=== PATIENT | female | born 1990 | race Caucasian/White ===

== ENCOUNTER 2018-11-17 11:32 | Emergency (ER) | payer OTHER ==
[~2018-11-17] VITALS: Ht 167.6 cm; Wt 86.2 kg
== END 2018-11-17 11:55 | disposition home or self-care (01) ==
LOC: ED 11:32
DX: M54.2 Cervicalgia (principal)

== ENCOUNTER 2020-09-12 07:35 | Emergency (ER) | payer OTHER ==
[~2020-09-12] VITALS: Ht 167.6 cm; Wt 91.6 kg
[2020-09-12] MEDS ORDERED: ADVIL200 MG PO (08:10)
[2020-09-12] MEDS ORDERED: OMEPRAZOLE20 MG PO (10:04)
[2020-09-12] MEDS ORDERED: ONDANSETRON ODT8 MG PO (10:04)
== END 2020-09-12 10:15 | disposition home or self-care (01) ==
LOC: ED 07:35
DX: K29.70 Gastritis, unspecified, without bleeding (principal); Z88.2 Allergy status to sulfonamides
CPT/HCPCS: 80053; 81001; 83690; 84703; 85025; 87088; 99284

== ENCOUNTER 2024-08-09 17:51 | Emergency (ER) | payer OTHER ==
[~2024-08-09] VITALS: Ht 167.6 cm; Wt 105.9 kg
[~2024-08-09 17:51] MED LIST: ADVIL200 MG PO; OMEPRAZOLE20 MG PO; ONDANSETRON ODT8 MG PO
[2024-08-09] MEDS ORDERED: DOCUSATE SODIU100 MG PO (18:17)
[2024-08-09] MEDS ORDERED: PROCARDIA XL30 MG PO (18:18)
[2024-08-09] MEDS ORDERED: IBUPROFEN600 MG PO (18:18)
[2024-08-09] MEDS ORDERED: NIFEdipine XL 30 MG HOME.PACK PO ONE (18:45)
[2024-08-09 19:00] LABS: BASOPHILS 0.3 % (0-2); EOSINOPHILS 1.3 % (0-6); HEMATOCRIT 35.9 % (35.0-50.0); HEMOGLOBIN 12.4 g/dL (12.0-18.0); LYMPHOCYTES 32.6 % (24-44); MCH 31.4 (27-36); MCHC 34.5 g/dl (30-36); MCV 90.9 fl (81-99); MONOCYTES 6.2 % (0-12); NEUTROPHILS 59.6 % (39-80); PLATELET COUNT 360 K/uL (140-440); RBC 3.94 M/ul (4.3-5.7)
[2024-08-09 19:15] LABS: ALBUMIN 2.5 g/dL (3.4-5.0); ALBUMIN/GLOBULIN RATIO 0.58 (1.1-2.4); ANION GAP 12.1 (7-21); BILIRUBIN, TOTAL 0.2 ng/dL (0.2-1.0); CALCIUM 8.6 mg/dL (8.5-10.1); POTASSIUM 4.1 mmol/L (3.5-5.1); PROTEIN, TOTAL 6.8 g/dL (6.4-8.2)
[2024-08-09 19:40] VITALS: BP 134/94
== END 2024-08-09 19:40 | disposition home or self-care (01) ==
LOC: ED 17:51
PROVIDERS: Emergency Medicine
DX: O16.5 Unspecified maternal hypertension, complicating the puerperium (principal); Z88.2 Allergy status to sulfonamides; Z79.899 Other long term (current) drug therapy
CPT/HCPCS: 36415; 80053; 85025; 99283

== ENCOUNTER 2025-01-14 22:12 | Observation (INO) | payer OTHER ==
[~2025-01-14] VITALS: Ht 167.6 cm; Wt 105.8 kg
[~2025-01-14 22:12] MED LIST changes: +DOCUSATE SODIU100 MG PO; +IBUPROFEN600 MG PO; +PROCARDIA XL30 MG PO
[2025-01-14 22:30] LABS: BILIRUBIN, URINE NEGATIVE (negative); BLOOD/HGB, URINE NEGATIVE (Negative); KETONE, URINE NEGATIVE (Negative); LEUK ESTERASE, URINE NEGATIVE (negative); NITRITE, URINE NEGATIVE (negative)
[2025-01-14 22:35] LABS: BASOPHILS 0.2 % (0-2); EOSINOPHILS 1.5 % (0-6); HEMATOCRIT 42.9 % (35.0-50.0); HEMOGLOBIN 15.1 g/dL (12.0-18.0); LYMPHOCYTES 50.4 % (24-44); MCH 31.9 (27-36); MCHC 35.3 g/dl (30-36); MCV 90.5 fl (81-99); MONOCYTES 8.5 % (0-12); NEUTROPHILS 39.4 % (39-80); PLATELET COUNT 237 K/uL (140-440); RBC 4.74 M/ul (4.3-5.7); RDW 13.1 (10.5-15.0)
[2025-01-14 22:50] LABS: ALBUMIN/GLOBULIN RATIO 1.21 (1.1-2.4); BILIRUBIN, TOTAL 0.4 mg/dL (0.2-1.0); BUN/CREATININE RATIO 19.04 (6.0-28.6); CALCIUM 9.2 mg/dL (8.5-10.1); CREATININE, SERUM 0.84 mg/dL (0.55-1.02); MAGNESIUM 2.1 mg/dL (1.8-2.4); PROTEIN, TOTAL 7.3 g/dL (6.4-8.2)
--- NOTE | 2025-01-14 23:00 | NUR ---
PATIENT APPEARS RESTFUL IN BED. EYES CLOSED. RR 16. CALL LIGHT IN REACH.
[2025-01-14] MEDS ORDERED: ondansetron HCL 4 MG/2 ML VIAL IV ONE (23:15)
[2025-01-14] MEDS ORDERED: MORPHINE SULFATE 4 MG/ML VIAL IV ONE (23:15)
[2025-01-15] MEDS ORDERED: FAMOTIDINE 20 MG/ 2 ML VIAL IV SCH ×2 (00:48→09:51)
[2025-01-15] MEDS ORDERED: HYDROmorphone HCL 1 MG/ML SYR IV PRN (01:00)
[2025-01-15] MEDS ORDERED: ondansetron HCL 4 MG/2 ML VIAL IV PRN ×2 (01:00→10:00)
[2025-01-15] MEDS ORDERED: ACETAMINOPHEN 325 MG TAB PO PRN (01:00)
[2025-01-15] MEDS ORDERED: DEXTROSE 5% - LACTATED RINGERS 1,000 ML IV SCH (01:00)
[2025-01-15] MEDS ORDERED: CEFAZOLIN SODIUM 2 GM/20 ML SYR IV SCH ×4 (02:30→14:00)
[2025-01-15 03:35] VITALS: BP 122/69
--- NOTE | 2025-01-15 03:35 | NUR ---
patient arrived to ccu room 127 via wheelchair. handoff report received from TASHA Hernandez. patient ambulates to bathroom voids 200cc of clear yellow urine and ambulates to bed. patient states for the past week she has had abdominal pain, diarrhea, and nausea. patient denies feeling any nausea or pain at this time. patient IV site WNL. IVF infusing per emar. patient provided with a warm blanket and oriented to room. patient has no needs at this time. this RN in room to complete admission.
--- NOTE | 2025-01-15 04:57 | NUR ---
PATIENT RESTING IN BED WITH EYES CLOSED, RESPIRATIONS EVEN AND UNLABORED. NO DISTRESS NOTED. PATIENT HAS CALL LIGHT IN REACH.
[2025-01-15 05:34] LABS: BASOPHILS 0.3 % (0-2); EOSINOPHILS 1.3 % (0-6); HEMATOCRIT 39.8 % (35.0-50.0); HEMOGLOBIN 13.9 g/dL (12.0-18.0); LYMPHOCYTES 46.6 % (24-44); MCH 31.6 (27-36); MCHC 34.8 g/dl (30-36); MCV 90.9 fl (81-99); MONOCYTES 5.8 % (0-12); PLATELET COUNT 199 K/uL (140-440); RBC 4.38 M/ul (4.3-5.7)
[2025-01-15 05:52] LABS: ALBUMIN 3.4 g/dL (3.4-5.0); ALBUMIN/GLOBULIN RATIO 1.17 (1.1-2.4); ANION GAP 11.8 (7-21); BILIRUBIN, TOTAL 0.5 mg/dL (0.2-1.0); BUN/CREATININE RATIO 11.49 (6.0-28.6); CALCIUM 8.2 mg/dL (8.5-10.1); CREATININE, SERUM 0.87 mg/dL (0.55-1.02); POTASSIUM 3.8 mmol/L (3.5-5.1); PROTEIN, TOTAL 6.3 g/dL (6.4-8.2)
--- NOTE | 2025-01-15 06:40 | NUR ---
PATIENT AWAKE IN BED TALKING ON PHONE. PATIENT DENIES ANY NEEDS AT THIS TIME. CALL LIGHT IN REACH.
[2025-01-15] MEDS ORDERED: MOUNJARO7.5 MG/0.5 SUB-Q (07:40)
--- NOTE | 2025-01-15 08:08 | NUR ---
assumed care from night manager. call light in reach iv fusing wnl.
[2025-01-15 08:30] VITALS: BP 123/73
--- NOTE | 2025-01-15 08:45 | NUR ---
PT USED CALL LIGHT REQUESTING TO USE RESTROOM. PT SALINE LOCKED AND AMBULATED TO BATHROOM INDEPENDENTLY. PT RETURNED AND PLACED BACK ON MAINTANCE FLUIDS, PT COMPLAINING OF BURNING ABOVE IV SITE. INSPECTED AND FLUSED, IV INFILTRATED. PT PRIMARY RN NOTIFIED
[2025-01-15] MEDS ORDERED: KETOROLAC TROMETHAMINE 30 MG/ML VIAL IV PRN (10:00)
[2025-01-15] MEDS ORDERED: MORPHINE SULFATE 10 MG/ML VIAL IV PRN (10:00)
[2025-01-15] MEDS ORDERED: LACTATED RINGER'S 1,000 ML IV ONE (10:00)
--- NOTE | 2025-01-15 10:28 | NUR ---
dr patel in with pt to discuss plan of care, consent done, gb book to pt. rn educated pt about process of surgery. pre op process.
--- NOTE | 2025-01-15 11:43 | NUR ---
MED REC COMPLETE
[2025-01-15 12:49] VITALS: BP 115/73
--- NOTE | 2025-01-15 15:20 | NUR ---
UR CLINICAL REVIEW: MADELINE-MAE CORREA MEETS OBS FOR CHOLEYSTECTOMY [facility] OBS 01/14/25 @ 2213 ORDER MATCHES REG NO AUTH REQUIRED FOR OBS STAY PER [facility] GUIDELINES PLANNED FOR SURGERY TODAY WITH POSSIBLE DISCHARGE 01/16/25
--- NOTE | 2025-01-15 16:11 | NUR ---
Spoke with Demetra. She lives in a one story home with 2 steps. She does not have any issues getting in or out of her home. Pt is a Special ed special education teacher. No issues with ambulation. She has a new baby. Her friends are helping her while in the hospital and will help her when she goes home. Her friend Amber will stay with her for a while. Pt denies needs. Home when medically cleared.
[2025-01-15 18:52] VITALS: BP 124/79
--- NOTE | 2025-01-15 18:54 | NUR ---
PT UPDATED ON SURGERY SCHEDULE UNKNOWN, PT DENIES NEEDS, NO PAIN OR NAUSEA RESTING IN ROOM- VISITING WITH FRIEND. WOULD LIKE TO EAT IF DR JOVEL AGREES, LIQUOR RUNNER AWARE AND WAITING TO ASK WHEN HE IS OUT OF SURGERY. PT AMB TO BR TO VOID QS. HAS BEEN NPO.
--- NOTE | 2025-01-15 20:50 | NUR ---
SPOKE TO ABOUT PLAN FOR SURGERY; PLAN FOR TOMORROW. PATIENT UPDATED.
[2025-01-15 21:31] VITALS: BP 123/83
--- NOTE | 2025-01-15 21:36 | NUR ---
PATIENT PROVIDED SCHEDULED MEDS. IV FLUIDS INFUSING PER ORDER. PATIENT DENIED NAUSEA. DOES HAVE SOME EPIGASTRIC/RIGHT SIDE ABD DISCOMFORT. PATIENT REPORTS THIS IS TOLERABLE BUT MAKES IF DIFFICULT TO SLEEP WELL. PRN PAIN MEDS PROVIDED. REST OF THE ASSESSMENT IS WNL. PATIENT VERBALIZED UNDERSTANDING OF PROCEDURE AND HAS BEEN READING PROVIDED MATERIALS. PATIENT DENIED ANY FURTHER NEEDS OR CONCERNS. LIGHTS DIMMED. CALL LIGHT IN REACH.
--- NOTE | 2025-01-16 01:00 | NUR ---
PATIENT APPEARS RESTFUL IN BED. ALLOWED PATIENT TO REST. CALL LIGHT IN REACH.
--- NOTE | 2025-01-16 03:30 | NUR ---
PATIENT RESTING IN BED. EYES CLOSED. RR 16. CALL LIGHT IN REACH.
[2025-01-16] MEDS ORDERED: LACTATED RINGER'S 1,000 ML IV SCH (05:30)
[2025-01-16 06:00] VITALS: BP 123/83
--- NOTE | 2025-01-16 06:00 | NUR ---
PATIENT PROVIDED WITH SCHEDULED ABX. PATIENT REPORTS SLEEPING WELL. DENIED PAIN OR NAUSEA THIS MORNING. IV FLUIDS PER ORDER; SITE WNL. PATIENT ASSESSMENT UNREMARKABLE. REVIEWED PLAN FOR TODAY; PATIENT VERBALIZED UNDERSTANDING.
[2025-01-16 08:00] VITALS: BP 116/89
[2025-01-16] MEDS ORDERED: ondansetron HCL 4 MG/2 ML VIAL IV PRN (09:00)
[2025-01-16] MEDS ORDERED: METOCLOPRAMIDE HCL 10 MG/2 ML SDV IV PRN (09:00)
[2025-01-16] MEDS ORDERED: droPERidol 5 MG/2 ML VIAL IV PRN (09:00)
[2025-01-16] MEDS ORDERED: MORPHINE SULFATE 10 MG/ML VIAL IV PRN (09:00)
[2025-01-16] MEDS ORDERED: IBLOOD GLUCOSE TEST STRIP 1 EA TEST VI PRN (09:00)
[2025-01-16] MEDS ORDERED: NALOXONE HCL 0.4 MG SYR IV PRN (09:00)
[2025-01-16] MEDS ORDERED: fentaNYL citrate 50 MCG/ML SDV IV PRN (09:00)
[2025-01-16] MEDS ORDERED: PROCHLORPERAZINE EDISYLATE 10 MG/2 ML VIAL IV PRN (09:00)
--- NOTE | 2025-01-16 09:00 | NUR ---
PT AAOX4 THIS MORNING. PT DENIES ABD PAIN AND NAUSEA. ABD IS SOFT TO TOUCH. ALL LOBES CLEAR, NO PERIPHERAL EDEMA NOTED. GB BOOKLET GIVEN AND PT WAS INFORMED ABOUT SX LATER THIS MORNING. CHLORHEXID. WIPES AT BEDSIDE AND PT WA EDUCATED ON HOW TO USE THEM. V/S WDL. PT DENIES PAIN AT THIS TIME. NO NEW CONCERNS NOTED AT THIS TIME.
--- NOTE | 2025-01-16 10:25 | NUR ---
UR CLINICAL REVIEW: MCG-PER [facility] MEETS OBS FOR CHOLEYSTECTOMY, VARIANCE FOR DC READINESS FOR THIS AM DUE TO CHANGE IN SURGICAL TIME FROM 01/15/25 TO TODAY, 01/16/25 [facility] OBS 01/14/25 @ 2213 ORDER MATCHES REG NO AUTH REQUIRED FOR OBS STAY PER [facility] GUIDELINES PLANNED FOR SURGERY TODAY WITH POSSIBLE DISCHARGE 01/17/25
--- NOTE | 2025-01-16 11:00 | NUR ---
PRE-OP WIPE DOWN IS DONE. PAPER WORK FOR SX READY, FRESH BED LINEN ON BED, FRESH GOWN GIVEN. PT HAS NO CURRENT NEEDS AND NO NEW CONCERNS HAVE BEEN NOTED AT THIS TIME.
[2025-01-16] MEDS ORDERED: LACTATED RINGER'S 1,000 ML IV ONE (11:35)
[2025-01-16] MEDS ORDERED: KETOROLAC TROMETHAMINE 30 MG/ML VIAL ONE (11:35)
[2025-01-16] MEDS ORDERED: METOCLOPRAMIDE HCL 10 MG/2 ML SDV ONE (11:35)
[2025-01-16] MEDS ORDERED: propofoL 200 MG/20 ML VIAL ONE (11:35)
[2025-01-16] MEDS ORDERED: FAMOTIDINE 20 MG/ 2 ML VIAL ONE (11:35)
[2025-01-16] MEDS ORDERED: MIDAZOLAM HCL 2 MG/2 ML VIAL ONE (11:35)
[2025-01-16] MEDS ORDERED: SUGAMMADEX SODIUM 200 MG/2 ML ML ONE (11:35)
[2025-01-16] MEDS ORDERED: fentaNYL citrate 100 MCG/2 ML VIAL ONE (11:35)
[2025-01-16] MEDS ORDERED: DEXAMETHASONE SOD PHOS 4 MG/ML VIAL ONE (11:35)
[2025-01-16] MEDS ORDERED: ROCURONIUM BROMIDE 50 MG/5 ML SYR ONE (11:35)
[2025-01-16] MEDS ORDERED: SUCCINYLCHOLINE IN 0.9% NACL 200 MG/10 ML SYRINGE ONE (11:35)
[2025-01-16] MEDS ORDERED: ondansetron HCL 4 MG/2 ML VIAL ONE (11:35)
[2025-01-16] MEDS ORDERED: LIDOCAINE HCL 4% 5 ML AMP ONE (11:36)
--- NOTE | 2025-01-16 11:56 | NUR ---
VISITED DURING SPIRITUAL CARE ROUNDS. PT IN OVERALL GOOD SPIRITS, NO IMMEDIATE NEEDS. GREENS TIER PROVIDED SUPPORTIVE PRESENCE, HOSPITALITY, PRAYER. PT EXPRESSED GRATITUDE.
[2025-01-16 12:00] VITALS: BP 119/76
--- NOTE | 2025-01-16 12:02 | NUR ---
PT IN ROOM. NO WORD FROM SURGERY THUS FAR. NO NEW CONCERNS NOTED AT THIS TIME.
--- NOTE | 2025-01-16 12:10 | NUR ---
Spoke with Demetra. She is waiting for surgery. Denies any needs. Offered colloring books or word searches. She states she is fine watching tv. She is hoping to discharge from to home following surgery. Friends will assist her.
--- NOTE | 2025-01-16 13:46 | NUR ---
PT NOW IS LEAVING FOR OR. PT TO COME BACK AFTER PACU.
[2025-01-16] MEDS ORDERED: SEVOFLURANE 250 ML BTL INH ONE (13:47)
[2025-01-16] MEDS ORDERED: ACETAMINOPHEN 1,000 MG/100 ML VIAL ONE (14:52)
[2025-01-16] MEDS ORDERED: droPERidol 5 MG/2 ML VIAL ONE (15:05)
[2025-01-16] MEDS ORDERED: MORPHINE SULFATE 10 MG/ML VIAL ONE (15:10)
[2025-01-16] MEDS ORDERED: TYLENOL EXTRA500 MG PO (16:37)
[2025-01-16] MEDS ORDERED: PERCOCET 7.5-31 EACH PO (16:37)
[2025-01-16] MEDS ORDERED: MOTRIN IB200 MG PO (16:38)
--- NOTE | 2025-01-16 16:42 | NUR ---
01/16/25 1642 Bhumi Villeda 1606-PT ARRIVES TO PACU VIA STRETCHER, RESTING SEMI FOWLERS, PT NOT RESPONSIVE TO NOXIOUS STIMULI,OPA IN PLACE, VSS ON 10L VIA MASK, RR EVEN AND UNLABORED. 1615-PT TITRATED TO 6L VIA MASK, VS REMAIN STABLE. 1638-PT AWAKENS ON OWN OPA REMOVED AND PT TITRATED TO RA, VS REMAIN STABLE. PT DENIES PAIN OR NAUSEA. 1640- AT BEDSIDE TO DISCUSS PROCEDURE RESULTS AND PLAN OF CARE W/ PT, ALL QUESTIONS ANSWERED.
[2025-01-16 16:57] VITALS: BP 130/85
--- NOTE | 2025-01-16 17:13 | NUR ---
PT ARRIVED BACK IN CCU AT 1655. PT IS AAOX4. PT SINCE ARRIVAL HAS WALKED TO BATHROOM AND VOIDED. PT ALSO HAS DRANK SOME WATER. V/S WDL.
[2025-01-16] MEDS ORDERED: ACETAMINOPHEN 500 MG TAB PO PRN (17:30)
[2025-01-16] MEDS ORDERED: IBUPROFEN 600 MG TAB PO PRN (17:30)
[2025-01-16] MEDS ORDERED: OXYCODONE/APAP 7.5/325 TAB PO PRN (17:30)
--- NOTE | 2025-01-16 17:44 | NUR ---
PT STARTED TO DESAT TO 86% ON RA. PT CURRENTLY ON 2L O2 NC. PT STATED THAT SHE FEELS TIRED. PT IS ABLE TO TOLERATE LIQUIDS AND FOOD AND DENIES ANY NAUSEA.
[2025-01-16 18:00] VITALS: BP 127/80
[2025-01-16 20:02] VITALS: BP 135/86
--- NOTE | 2025-01-16 20:06 | NUR ---
PATIENT BACK IN BED AFTER UP TO BATHROOM, SHE REPORTS PAIN IS 6/10 AND FEELS SHE NEEDS THE PERCOCET AT THIS TIME, THIS RN DISCUSSED TAKING MOTRIN WHEN PAIN INCREASES NEXT. PATIENT AMBULATES WELL, STEADY GAIT. SHE HAS MEET GENERAL DISCHARGE CRITERIA. PATIENT REPORTS SHE FEELS VERY WEAK AND WOULD LIKE TO STAY ANOTHER NIGHT. ASSESSMENT COMPLETE NO NEW CONCERNS FROM REPORT, IVF INFUSING NOW PER ORDERS. PATIENT IS ON ROOM AIR 95% OXYGEN SATURATION. HER MOTHER SHELLEY IS AT BEDSIDE.
[2025-01-16] MEDS ORDERED: FAMOTIDINE 20 MG TAB PO SCH (21:00)
--- NOTE | 2025-01-16 21:55 | NUR ---
PATIENT REQUEST MORE SNACKS, SALTINES, APPLESAUCE, PEANUT BUTTER CUPS X2.
--- NOTE | 2025-01-17 02:16 | NUR ---
PATIENT HAS BEEN ADMINISTERED 1 TAB PERCOCET PRN AT 0127, PATIENT NOW REPORTS PAIN IS MORE SEVERE AT 7/10, SHE REPORTS, "WORSE THAN MY ." PATIENT ADMINISTERED SECOND TAB PERCOCET AT THIS TIME. PATIENT IS RESTING RELAXED IN BED, V/S STABLE, INCISIONS WELL PROXIMATED WITH SCANT AMOUNT OF DRY DRAINAGE NOTED, NO CHANGE FROM START OF SHIFT. DISCUSSED PAIN MANAGEMENT MEDICATIONS AND SAFE HOME ADMINISTRATION OF MEDICATIONS.
[2025-01-17 02:19] VITALS: BP 128/83
[2025-01-17 06:10] VITALS: BP 121/85
--- NOTE | 2025-01-17 06:14 | NUR ---
ROUNDING ON PATIENT, SHE REPORTS NEED TO USE THE BATHROOM, PATIENT UP INDEPENDENTLY ONCE SCDS DISCONNECTED. PATIENT REPORTS PAIN 3/10 MOTRIN PO PRN ADMINISTERED. DISCUSSED PAIN MANAGEMENT AT HOME. SHE REPORTS FEELING MUCH BETTER ABOUT PLAN FOR DISCHARGE TODAY.
--- NOTE | 2025-01-17 08:00 | NUR ---
NANCY RECIEVED FROM [employer] MILL OPERATOR RN. PATIENT UP IN THE CHAIR FOR BREAKFAST. PATIENT REPORTS PAIN IS MORE TOELRABLE WITH CURRENT PAIN MEDICATIONS. PATIENT STATES SHE IS PASSING GAS THIS AM.
[2025-01-17 09:00] VITALS: BP 122/92
--- NOTE | 2025-01-17 10:00 | NUR ---
UPDATED MD JOVEL THAT PATIENT STAYED OVER NIGHT AND IS DOING BETTER THIS AM WITH PAIN CONTROL AND READY TO GO HOME. DC ORDER IS ALREADY IN PLACE FROM LAST NIGHT. RVIEWED PATIENTS LIVER ENZYMES WITH PROVIDER AND NO NEED FOR ANY FOLLOWUP LABS. WILL DC PATIENT TODAY.
--- NOTE | 2025-01-18 07:47 | OR ---
[facility] [address] [place], [place] [address] Signed DATE OF OPERATION: 01/16/2025 SURGEON: George Jovel MD PREOPERATIVE DIAGNOSIS: Acute calculous cholecystitis. POSTOPERATIVE DIAGNOSIS: Acute acalculous cholecystitis. PROCEDURES: 1. Laparoscopic cholecystectomy with intraoperative cholangiogram. 2. Surgeon-directed fluoroscopy. ANESTHESIA: General endotracheal; George Jean Baptiste CRNA and local 10 mL of 0.25% Marcaine with epinephrine. INDICATION: This 34-year-old white woman is five months from . 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 Michaela Rausch with complaints of right upper abdominal pain. Claudia Souza is her current primary provider. She has seen Rosanne Lemus in the past. Evaluation in the emergency room included a gallbladder ultrasound confirmed gallstones and mild gallbladder wall thickening without sign of bile duct obstruction. She was admitted for further evaluation and care. She has undergone IV fluid administration and antibiotic Ancef and now to undergo cholecystectomy for calculous cholecystitis. She understands the risk of bleeding, infection, bile duct injury, need for open procedure and other unforeseen complications and wished to proceed with surgery. FINDINGS: Indeed there was no stone that could be discerned, but significant cholesterolosis. There was no sign of neoplasm. Cholangiogram was normal, though the cystic duct was surprisingly long and inserted on the medial aspect of the common bile duct. The liver was normal. She tolerated the procedure well. DESCRIPTION OF PROCEDURE: The patient was brought to the operating room and given a general endotracheal anesthetic. Preoperative antibiotic Ancef had been given. Sequential compression Electronically Signed By: GEORGE JOVEL MD 01/18/25 0747 PATIENT NAME: JERSEY JANE OPERATIVE REPORT DATE OF : [birth year] REPORT #: [id number] PHYSICIAN: GEORGE JOVEL MD PCP: ROSANNE LEMUS-Miguel REPORT IS CONFIDENTIAL AND NOT TO BE RELEASED WITHOUT AUTHORIZATION [facility] [address] [place], [place] [address] Signed device stockings were used and heparin subcutaneously administered. The abdomen was prepared with chlorhexidine solution and draped sterilely. An infraumbilical incision was made and using an open Francisco cannula technique pneumoperitoneum was achieved to a level of 14 mmHg with carbon dioxide gas. Intra-abdominal inspection showed no sign of ascites or carcinomatosis. The gallbladder was obscured from view related to the omentum. The liver had mild fatty infiltration, but otherwise normal. Three additional trocars were placed in usual configuration in the subxiphoid, right midclavicular, and right anterior axillary line. Gallbladder was seen and found to be relatively small, but acutely inflamed and edematous. The gallbladder was grasped and elevated cephalad and fatty peritoneal membranes over the infundibulum were freed with blunt electrocautery dissection allowing for retraction of the gallbladder more fully. A dominant cystic artery was draped over the infundibulum, which was isolated and doubly clipped and divided. This allowed for better exposure of the infundibulum and with blunt electrocautery dissection the triangle of Calot was dissected free identifying the cystic duct which was relatively large. The critical view of safety was used to ascertain the cystic duct was clearly related to the gallbladder. The clips were applied to the gallbladder cystic duct junction and transverse choledochotomy made in the cystic duct. An Holguin type cholangiocatheter was placed in the cystic duct and intraoperative cholangiography was undertaken with surgeon-directed fluoroscopy. Free flow of contrast in the biliary tree was noted. The cystic duct was surprisingly long and inserted on the medial aspect of the common duct. The more proximal biliary tree was normal. The catheter was removed after ascertaining the normal findings on the cholangiogram. The cystic duct was triply clipped and divided. The gallbladder was dissected free in a retrograde fashion using electrocautery. The gallbladder was placed in an endobag and extracted through the infraumbilical port site without problem. Inspection of the subhepatic space showed minor oozing of the and this was secured with electrocautery. Additionally, Car was applied. Irrigation and irrigation fluid was suctioned free and the trocars were removed under direct visualization showing no sign of bleeding. The infraumbilical fascial incision was reapproximated with interrupted 0 Vicryl suture. 10 mL of 0.25% Marcaine with epinephrine was injected locally. The skin was closed with interrupted 3-0 Vicryl. Steri-Strips were applied. The patient was ultimately extubated and transferred to the recovery room in good condition having suffered no complications. Sponge, needle, and instrument counts were reported as correct x3. George Jovel MD Electronically Signed By: GEORGE JOVEL MD 01/18/25 0747 PATIENT NAME: JERSEY JANE OPERATIVE REPORT DATE OF : [birth year] REPORT #: [id number] PHYSICIAN: GEORGE JOVEL MD PCP: ROSANNE LEMUS REPORT IS CONFIDENTIAL AND NOT TO BE RELEASED WITHOUT AUTHORIZATION [facility] [address] [place] [address] Signed /MODL /[id number] cc: Dr. Rosanne Souza PA-C Copies: CLAUDIA SOUZA PA-C ~ Electronically Signed By: GEORGE JOVEL MD 01/18/25 0747 PATIENT NAME: JERSEY JANE OPERATIVE REPORT DATE OF : [birth year] REPORT #: [id number] PHYSICIAN: GEORGE JOVEL MD PCP: ROSANNE LEMUS REPORT IS CONFIDENTIAL AND NOT TO BE RELEASED WITHOUT AUTHORIZATION
--- NOTE | 2025-01-18 07:47 | HP ---
[facility] [address] [place], [place] [address] Signed ADMISSION DATE: 01/14/2025 REASON FOR ADMISSION: Acute calculous cholecystitis. 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 Rausch with complaints of right upper abdominal pain. The patient sees GEETA Leiva as her primary provider. She had been working with her on evaluation for vague upper abdominal pain. Quite notably, she is five months . She no longer breast-feeds, however. Her evaluation in emergency room included a gallbladder ultrasound which confirmed gallstones and mild gallbladder wall thickening without sign of bile duct obstruction. Common bile duct was 3.9 mm. She was admitted for further evaluation and care for acute calculous cholecystitis. Notably her laboratory studies showed a normal white count of 9.9 with hematocrit of 42.9 and normal platelets at 237,000. Chem profile did show elevated liver enzyme, ALT, but other liver enzymes were normal. This morning, however, liver enzymes are elevated with an AST of 225, ALT 225, and an alkaline phosphatase of only 76 with a normal bilirubin of 0.5. PAST MEDICAL HISTORY: Remarkable only for five months ago as previously noted. She did have gestational diabetes. She has had eye muscle surgery in the past and delivery was by . ALLERGIES: She has allergy to sulfa medication. HOME MEDICATIONS: Include 1. DSS. 2. Ibuprofen. 3. Nifedipine daily. REVIEW OF SYSTEMS: She denies any shortness of breath or chest pain. Her pain is dominantly in the epigastric and right subcostal area. It is improved today. Electronically Signed By: GEORGE JOVEL MD 01/18/25 0747 PATIENT NAME: JERSEY JANE HISTORY AND PHYSICAL DATE OF : [birth year] REPORT #: [id number] PHYSICIAN: GEORGE JOVEL MD PCP: WESLEY CALLEJAS REPORT IS CONFIDENTIAL AND NOT TO BE RELEASED WITHOUT AUTHORIZATION [facility] [address] [place], [place] [address] Signed PHYSICAL EXAMINATION: GENERAL: Pleasant white woman, looks to be in no acute distress. She does not have systemic toxicity. Trachea is midline. CHEST: Clear. HEART: Regular without murmur. ABDOMEN: Obese, but generally soft. There is a low-transverse incision it is healing well. There is mild tenderness in right upper quadrant. LABORATORY DATA: Lab studies were as previously noted and ultrasound images were reviewed as was the report. Report does describe echogenic shadowing gallstones. ASSESSMENT: The patient has acute calculous cholecystitis and has been admitted. I discussed with her in detail using illustrations and so forth, the pathophysiology of biliary disease and recommendation of treatment for acute calculous cholecystitis to include cholecystectomy preferred by laparoscopic approach. The risk of bleeding, infection, bile duct injury, need for open procedure, need for other indicated procedures were discussed as well. She understands and wished to proceed. MD DAYDAY Cochran/MEENU /[id number] cc: YAMEL Molina [facility] Copies: MARGIE LAW PA-C ~ Electronically Signed By: GEORGE JOVEL MD 01/18/25 0747 PATIENT NAME: JERSEY JANE HISTORY AND PHYSICAL DATE OF : [birth year] REPORT #: [id number] PHYSICIAN: GEORGE JOVEL MD PCP: WESLEY CALLEJAS REPORT IS CONFIDENTIAL AND NOT TO BE RELEASED WITHOUT AUTHORIZATION
--- NOTE | 2025-01-18 07:47 | DS ---
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 Rausch with complaints of right upper abdominal pain. Her primary provider is GEETA Leiva. Emergency evaluation included a gallbladder ultrasound confirming gallstones and mild gallbladder wall thickening without sign of duct obstruction. She was admitted for further evaluation and care. PERTINENT PHYSICAL EXAMINATION: GENERAL: Showed a pleasant white woman who looked to be uncomfortable. CHEST: Clear. HEART: Regular without murmur. ABDOMEN: Obese, but soft. There is a low-transverse incision healing well. There is mild tenderness in right upper quadrant. LABORATORY STUDIES: Showed a white count of 9.9 with a hematocrit of 42.9. Chem profile showed elevated liver enzyme, ALT, but other liver enzymes are normal. HOSPITAL COURSE: She was given intravenous fluid resuscitation, parenteral pain medication, IV antibiotics. The following morning, her liver enzymes are somewhat elevated with an AST of 225, an ALT of 225, and an alkaline phosphatase of only 76 with a normal bilirubin of 0.5. On January 16, 2025, she underwent laparoscopic cholecystectomy with intraoperative cholangiogram. She had a very edematous gallbladder, but there was no sign of gangrenous change or anything of that sort. Cholangiogram was normal. Notably, she did not have a true gallstone, but did have profound cholesterolosis. Postoperatively, she did well. She tolerated diet and then by following morning, was able to be discharged home. DISCHARGE MEDICATIONS: Will include: 1. Percocet 7.5/325 1-2 p.o. q.6 hours as needed for pain, #6. 2. Tylenol Extra Strength two tablets p.o. q.6 hours as needed for pain, #30. 3. Ibuprofen 200 mg three tabs p.o. q.6 hours as needed for pain, #30, refill 1. 4. She will resume her usual home medications including Mounjaro 7.5 mg subcutaneously Electronically Signed By: GEORGE JOVEL MD 01/18/25 0747 PATIENT NAME: JERSEY JANE DISCHARGE SUMMARY DATE OF : [birth year] REPORT #: [id number] PHYSICIAN: GEORGE JOVEL MD PCP: WESLEY CALLEJAS REPORT IS CONFIDENTIAL AND NOT TO BE RELEASED WITHOUT AUTHORIZATION [address] [address] Signed weekly. FOLLOWUP PLAN: She is to return to see me in a month or so. She will call on Sunday to set up an appointment. She should lift no more than 20 pounds for the next two weeks and is permitted to shower tomorrow. She will keep Steri-Strips on. DISCHARGE DIAGNOSES: 1. Acute acalculous cholecystitis, status post laparoscopic cholecystectomy with intraoperative cholangiogram. 2. state, five months. 3. Mild obesity. MD DAYDAY Cochran/MEENU /[id number] Copies: ~ Electronically Signed By: GEORGE JOVEL MD 01/18/25 0747 PATIENT NAME: JERSEY JANE DISCHARGE SUMMARY DATE OF : [birth year] REPORT #: [id number] PHYSICIAN: GEORGE JOVEL MD PCP: WESLEY CALLEJAS REPORT IS CONFIDENTIAL AND NOT TO BE RELEASED WITHOUT AUTHORIZATION
--- NOTE | 2025-01-21 09:44 | PATH ---
[facility] [address] [facility] [place], [place] [address] Signed SPECIMEN(S): A GALLBLADDER SPECIMEN SOURCE: A. GALLBLADDER CLINICAL HISTORY: Acute calculus cholecystitis FINAL PATHOLOGIC DIAGNOSIS: Gallbladder, cholecystectomy: - Chronic cholecystitis BRP MICROSCOPIC EXAMINATION: Histologic sections of all submitted blocks are examined by light microscopy. These findings, together with the gross examination, support the pathologic diagnosis. GROSS DESCRIPTION: The specimen, labeled and designated "ashley Jane," is received in formalin and consists of Specimen: Previously opened gallbladder. Dimensions: 7.3 x 2.5 x 1.8 cm. Serosa: Green-preston and smooth. Cystic Duct: Unobstructed, margin inked black and shaved. Calculi: Not grossly identified. Mucosa: Green-preston and velvety with yellow flecking. Wall thickness: 0.4-0.6 cm. Lymph node: No pericystic lymph nodes are grossly identified. Additional: None. [employer] sections are submitted in (A1). VB (under the direct supervision of a pathologist) The Gross Description was prepared using a voice recognition system. The report was reviewed for accuracy; however, sound-alike word errors, addition and/or deletions may occur. If there is any question about this report, please contact Client Services. ADDITIONAL NOTES: Immunohistochemical and/or in situ hybridization studies if performed in this case included appropriate positive controls that reacted as expected. This test was developed and its performance PATIENT NAME: JERSEY JANE PATHOLOGY DATE OF : [birth year] REPORT #: [id number] PHYSICIAN: POLA JOHNSON PCP: WESLEY CALLEJAS REPORT IS CONFIDENTIAL AND NOT TO BE RELEASED WITHOUT AUTHORIZATION [address] [place], [place] [address] Signed characteristics determined by [employer]. It has not been cleared or approved by the U.S. Food and Drug Administration. The FDA has determined that such clearance or approval is not necessary. This test is used for clinical purposes. It should not be regarded as investigational or for research. [employer] is certified under the Clinical Laboratory Improvement Amendments of 1988 (CLIA) as qualified to perform high complexity clinical laboratory testing. PERFORMING LABORATORY: Technical component was performed by [employer], [address] [place] [address] (CLIA# [id number]). Professional interpretation was performed by [facility], [address] [place] [address] (CLIA#: [id number]). Diagnostician: Seth Benavidez MD Pathologist Electronically Signed 01/21/2025 Copies: ~ PATIENT NAME: JERSEY JANE PATHOLOGY DATE OF : [birth year] REPORT #: [id number] PHYSICIAN: POLA JOHNSON PCP: WESLEY CALLEJAS REPORT IS CONFIDENTIAL AND NOT TO BE RELEASED WITHOUT AUTHORIZATION
== END 2025-01-17 10:45 | disposition home or self-care (01) ==
LOC: ED 22:12 → CCU 22:13
PROVIDERS: Family Medicine; ADMIT Surgery; ATTEND Surgery
PROC: 0FT44ZZ Resection of Gallbladder, Percutaneous Endoscopic Approach (ICD-10-PCS; principal; 2025-01-16 14:15)
DX: K81.1 Chronic cholecystitis (principal); K81.0 Acute cholecystitis; E66.01 Morbid (severe) obesity due to excess calories; Z88.2 Allergy status to sulfonamides
CPT/HCPCS: 00790; 36415; 74300; 76705; 80053; 81003; 83690; 83735; 84703; 85025; 94762; 96374; 96375; 96376; 99285-25; A9270; G0378; J0131; J0330; J0690; J1100; J1790; J1885; J2250; J2270; J2405; J2704; J2765; J3010; J3490; J7121; Q9967